=== PATIENT | female | born 1960 | race Hispanic/Latino ===

== ENCOUNTER 2021-12-27 08:53 | Emergency (ER) | payer SELFPAY ==
[~2021-12-27] VITALS: Ht 162.6 cm; Wt 77.1 kg
[2021-12-27] MEDS ORDERED: DEXAMETHASONE SOD PHOS 10 MG/1 ML VIAL IM ONE (09:30)
[2021-12-27] MEDS ORDERED: DEXAMETHASONE SOD PHOS INJ 4 MG/ML SDV ONE (09:37)
[2021-12-27] MEDS ORDERED: CYCLOBENZAPRINE5 MG PO (10:07)
[2021-12-27] MEDS ORDERED: HYDROCODON-ACE1 EA12 PO (10:07)
== END 2021-12-27 11:07 | disposition home or self-care (01) ==
LOC: FSED 09:21
DX: M54.50 Low back pain, unspecified (principal); M25.551 Pain in right hip; I12.9 Hypertensive chronic kidney disease with stage 1 through stage 4 chronic kidney disease, or unspecified chronic kidney disease; E11.22 Type 2 diabetes mellitus with diabetic chronic kidney disease; N18.30 Chronic kidney disease, stage 3 unspecified; E78.5 Hyperlipidemia, unspecified; F17.210 Nicotine dependence, cigarettes, uncomplicated
CPT/HCPCS: 72100; 73502; 99283; J1100 ×2